=== PATIENT | male | born 1970 | race Caucasian/White ===

== ENCOUNTER 2017-05-12 11:00 | Emergency (ER) | payer BC ==
[~2017-05-12] VITALS: Ht 177.8 cm; Wt 78.0 kg
[~2017-05-12 11:00] MED LIST: LOSA25TA PO
[2017-05-12 11:06] VITALS: BP 151/81; PULSE 74; RESP 16; TEMP 98; O2SAT 99
[2017-05-12] MEDS ORDERED: METR-1 PO (11:48)
[2017-05-12] MEDS ORDERED: TRAM50TA PO (11:48)
[2017-05-12] MEDS ORDERED: CIPR500T2 PO (11:48)
[2017-05-12] MEDS ORDERED: ZOFR4TAB PO (11:48)
--- NOTE | 2017-05-12 11:51 | PD ---
HPI Chief Complaint: Abdominal Pain Time Seen by Provider: 11:16 Travel History International Travel<30 days: No Contact w/Intl Traveler<30days: No Traveled to known affect area: No History of Present Illness HPI This patient complains of abdominal pain. Location is left lower quadrant. Severity is moderate. Duration 3 days. No fever or vomiting or constipation. Had a normal bowel movement yesterday. No alleviating factors. Patient has history of intermittent spells of colitis which presented just like this. They usually resolve spontaneously. Has had CT scan before showing colitis and had resolution with antibiotics. PFSH Past Medical History Cardiovascular Problems: Yes (htn) Diminished Hearing: No Gastrointestinal Disorders: Yes (colitis) Hypertension: Yes Influenza Vaccination: Yes ?: Not Social History Alcohol Use: Yes Tobacco Use: No Substance Use: No Allergies-Medications (Allergen,Severity, Reaction): Coded Allergies: ibuprofen (Unverified Allergy, Mild, Hives, 05/12/17) amoxicillin (Unverified Allergy, Unknown, 05/12/17) clavulanic acid (Unverified Allergy, Unknown, 05/12/17) Reported Meds & Prescriptions Reported Meds & Active Scripts Active Tramadol (Tramadol HCl) 50 Mg Tab 50 Mg PO Q6H PRN Zofran (Ondansetron HCl) 4 Mg Tab 4 Mg PO Q6HR PRN Flagyl (Metronidazole) 500 Mg Tab 500 Mg PO QID 7 Days Ciprofloxacin (Ciprofloxacin HCl) 500 Mg Tab 500 Mg PO BID 7 Days Reported Losartan (Losartan Potassium) 25 Mg Tab 25 Mg PO DAILY Review of Systems General / Constitutional: No: Fever Eyes: No: Visual changes HENT: No: Headaches Cardiovascular: No: Chest Pain or Discomfort Respiratory: No: Shortness of Breath Gastrointestinal: Positive: Abdominal Pain Genitourinary: No: Dysuria Musculoskeletal: No: Pain Skin: No Rash Neurologic: No: Weakness Psychiatric: No: Depression Endocrine: No: Polydipsia Hematologic/Lymphatic: No: Easy Bruising Physical Exam Narrative GENERAL: Well-nourished, well-developed patient in no apparent distress. SKIN: Focused skin assessment reveals no rash and nodules. Skin is Warm and dry. HEAD: Atraumatic. Normocephalic. EYES: Pupils equal and round. No scleral icterus. No injection or drainage. ENT: No nasal bleeding or discharge. Mucous membranes pink and moist. NECK: Trachea midline. No JVD. CARDIOVASCULAR: Regular rate and rhythm. No murmur appreciated. RESPIRATORY: No accessory muscle use. Clear to auscultation. Breath sounds equal bilaterally. GASTROINTESTINAL: Abdomen soft, left lower quadrant is tender without rebound or guarding, nondistended. Hepatic and splenic margins not palpable. MUSCULOSKELETAL: No obvious deformities. No clubbing. No cyanosis. No edema. NEUROLOGICAL: Awake and alert. No obvious cranial nerve deficits. Motor grossly within normal limits. Normal speech. PSYCHIATRIC: Appropriate mood and affect; insight and judgment normal. Data Data Last Documented VS Vital Signs Date Time Temp Pulse Resp B/P (MAP) Pulse Ox O2 Delivery O2 Flow Rate FiO2 05/12/17 11:06 98.0 74 16 151/81 (104) 99 MDM Medical Decision Making Medical Screen Exam Complete: Yes Emergency Medical Condition: Yes Medical Record Reviewed: Yes Differential Diagnosis Diverticulitis, colitis, ileus Narrative Course I have reviewed the patient's electronic medical record. Had a lengthy discussion about options. This is a recurrent problem that he gets periodically. I offered and discussed risks and benefit of CT scan but he would rather just get some treatment started. I advised him to call his family physician for follow-up and discuss with her GI referral would be appropriate. He's never had colonoscopy. I don't have clinical suspicion of obstruction or perforation or abscess given his benign presentation. His vitals are normal and his abdomen is soft Advised to return if he worsens I prescribe Cipro and Flagyl as well as some in for pain and nausea Diagnosis Primary Impression: Acute left lower quadrant pain Additional Instructions: The patient was advised to follow up with their physician and return if they worsen. The patient was warned about potential sedation for the medications they will receive on prescription. Med/Other Pt SpecificInfo: Prescription(s) given Scripts Tramadol (Tramadol) 50 Mg Tab 50 MG PO Q6H Y for PAIN, #20 TAB 0 Refills Prov: Cam Morgan MD 05/12/17 Ondansetron (Zofran) 4 Mg Tab 4 MG PO Q6HR Y for NAUSEA OR VOMITING, #12 TAB 0 Refills Prov: Cam Morgan MD 05/12/17 Metronidazole (Flagyl) 500 Mg Tab 500 MG PO QID for Infection for 7 Days, TAB 0 Refills Prov: Cam Morgan MD 05/12/17 Ciprofloxacin (Ciprofloxacin) 500 Mg Tab 500 MG PO BID for Infection for 7 Days, TAB 0 Refills Prov: Cam Morgan MD 05/12/17 Disposition: 01 DISCHARGE HOME Condition: Stable aCm Morgan MD May 12, 2017 11:51
== END 2017-05-12 12:00 | disposition home or self-care (01) ==
LOC: PHED 11:00
DX: R10.32 Left lower quadrant pain (principal); I10 Essential (primary) hypertension
CPT/HCPCS: 99284